=== PATIENT | male | born 1940 | race Two or more races ===

== ENCOUNTER → 2025-07-20 | Outpatient (CLI) | payer OTHER, MEDICAID, SELFPAY ==
--- NOTE | 2025-07-20 09:22 | XR_ITS ---
Examination: Fingers, right hand first digit 3 views Technique: AP, oblique, lateral views right hand first digit 3 views. Exam date and time: July 20, 2025, 0925 hours INDICATIONS: Right thumb pain beginning 1 month ago. FINDINGS: Moderate osteoarthritis first carpometacarpal joint, first metacarpal phalangeal joint, interphalangeal joint Also moderate osteoarthritis interphalangeal joints second through fifth digits No erosive arthritis No fracture IMPRESSION: Osteoarthritis as above
== END | disposition home or self-care (01) ==
LOC: CDIM 09:11
PROVIDERS: PCP Family Medicine; Referring Provider Family Medicine; Visit Provider Family Medicine
DX: M19.041 Primary osteoarthritis, right hand (principal)
CPT/HCPCS: 73140